=== PATIENT | female | born 1995 | race Caucasian/White ===

== ENCOUNTER 2016-12-23 09:10 | Emergency (ER) | payer OTHER ==
[~2016-12-23] VITALS: Ht 157.5 cm; Wt 57.0 kg
[~2016-12-23 09:10] MED LIST: Z.0.BCPILL PO
[2016-12-23 09:12] VITALS: BP 152/96; PULSE 73; RESP 16; TEMP 98.3; O2SAT 100
--- NOTE | 2016-12-23 09:25 | PD ---
HPI Chief Complaint: Injury Time Seen by Provider: 09:19 Travel History International Travel<30 days: No Contact w/Intl Traveler<30days: No Traveled to known affect area: No History of Present Illness HPI This is a 21-year-old female who 1 week ago was jumping off a tailgate and landed hard on her right heel, who presents today with constant heel pain, moderate severity, described as a soreness, with no associated numbness or weakness. She has been able to walk on it but she mostly asked to walk on her toes because it hurt so much. PFSH Past Medical History Hx Anticoagulant Therapy: No Diabetes: No Diminished Hearing: No Immunizations Current: Yes ?: Not LMP: 12/19/2016 : 0 Past Surgical History Other Surgery: Yes (kidney when a baby) Social History Alcohol Use: No Tobacco Use: No Substance Use: No Allergies-Medications (Allergen,Severity, Reaction): Coded Allergies: No Known Allergies (Verified , 12/23/16) Reported Meds & Prescriptions Reported Meds & Active Scripts Active Reported [ control pill] 1 Tab PO DAILY Review of Systems General / Constitutional: No: Fever, Chills Gastrointestinal: No: Nausea, Vomiting Physical Exam Narrative GENERAL: Well-appearing, no acute distress, nontoxic SKIN: Warm and dry. HEAD: Atraumatic. Normocephalic. ENT: No nasal bleeding or discharge. Moist mucous membranes Vascular: 2+ right DP pulse with normal capillary refill. MUSCULOSKELETAL: Tender to palpation over the right heel with no focal swelling or deformity NEUROLOGICAL: Awake and alert. No obvious cranial nerve deficits. Moving all extremities. PSYCHIATRIC: Appropriate mood and affect; insight and judgment normal. Data Data Last Documented VS Vital Signs Date Time Temp Pulse Resp B/P (MAP) Pulse Ox O2 Delivery O2 Flow Rate FiO2 12/23/16 09:32 16 100 Room Air 12/23/16 09:12 98.3 73 152/96 (114) Orders Orders Foot, Complete ([id number]) (12/23/16 ) [facility] Medical Decision Making Medical Screen Exam Complete: Yes Emergency Medical Condition: Yes Interpretation(s) Afebrile, no tachycardia, hypertensive Last 24 hours Impressions Foot X-Ray 12/23/16 0000 Signed Impressions: Service Date/Time: Friday, December 23, 2016 09:36 - CONCLUSION: No fracture. Emmanuel Stein MD Differential Diagnosis Calcaneal spur, calcaneal fracture, heel contusion, metatarsal fracture Narrative Course This is a 21-year-old female who presents to the emergency department having sustained an injury to her heel. Patient has a benign exam. X-rays reassuring. I suspect she has a contusion. She was given podiatry for follow- up if she is not improved in one week. Diagnosis Primary Impression: Contusion of heel Qualified Codes: S90.31XA - Contusion of right foot, initial encounter Referrals: Francisco Burton DPM Patient Instructions: General Instructions Additional Instructions: If you develop severe pain, numbness or weakness return to the emergency department. Follow-up with a stock dealer if you're not improved in one week. Med/Other Pt SpecificInfo: No Change to Meds Disposition: 01 DISCHARGE HOME Condition: Stable Julissa Valentino MD Dec 23, 2016 09:25
--- NOTE | 2016-12-23 09:25 | PD ---
HPI Chief Complaint: Injury Time Seen by Provider: 09:19 Travel History International Travel<30 days: No Contact w/Intl Traveler<30days: No Traveled to known affect area: No History of Present Illness HPI This is a 21-year-old female who 1 week ago was jumping off a tailgate and landed hard on her right heel, who presents today with constant heel pain, moderate severity, described as a soreness, with no associated numbness or weakness. She has been able to walk on it but she mostly asked to walk on her toes because it hurt so much. PFSH Past Medical History Hx Anticoagulant Therapy: No Diabetes: No Diminished Hearing: No Immunizations Current: Yes ?: Not LMP: 12/19/2016 : 0 Past Surgical History Other Surgery: Yes (kidney when a baby) Social History Alcohol Use: No Tobacco Use: No Substance Use: No Allergies-Medications (Allergen,Severity, Reaction): Coded Allergies: No Known Allergies (Verified , 12/23/16) Reported Meds & Prescriptions Reported Meds & Active Scripts Active Reported [ control pill] 1 Tab PO DAILY Review of Systems General / Constitutional: No: Fever, Chills Gastrointestinal: No: Nausea, Vomiting Physical Exam Narrative GENERAL: Well-appearing, no acute distress, nontoxic SKIN: Warm and dry. HEAD: Atraumatic. Normocephalic. ENT: No nasal bleeding or discharge. Moist mucous membranes Vascular: 2+ right DP pulse with normal capillary refill. MUSCULOSKELETAL: Tender to palpation over the right heel with no focal swelling or deformity NEUROLOGICAL: Awake and alert. No obvious cranial nerve deficits. Moving all extremities. PSYCHIATRIC: Appropriate mood and affect; insight and judgment normal. Data Data Last Documented VS Vital Signs Date Time Temp Pulse Resp B/P (MAP) Pulse Ox O2 Delivery O2 Flow Rate FiO2 12/23/16 09:32 16 100 Room Air 12/23/16 09:12 98.3 73 152/96 (114) Orders Orders Foot, Complete ([id number]) (12/23/16 ) [facility] Medical Decision Making Medical Screen Exam Complete: Yes Emergency Medical Condition: Yes Interpretation(s) Afebrile, no tachycardia, hypertensive Last 24 hours Impressions Foot X-Ray 12/23/16 0000 Signed Impressions: Service Date/Time: Friday, December 23, 2016 09:36 - CONCLUSION: No fracture. Emmanuel Stein MD Differential Diagnosis Calcaneal spur, calcaneal fracture, heel contusion, metatarsal fracture Narrative Course This is a 21-year-old female who presents to the emergency department having sustained an injury to her heel. Patient has a benign exam. X-rays reassuring. I suspect she has a contusion. She was given podiatry for follow- up if she is not improved in one week. Diagnosis Primary Impression: Contusion of heel Qualified Codes: S90.31XA - Contusion of right foot, initial encounter Referrals: Francisco Burton DPM Patient Instructions: General Instructions Additional Instructions: If you develop severe pain, numbness or weakness return to the emergency department. Follow-up with a medical technicians if you're not improved in one week. Med/Other Pt SpecificInfo: No Change to Meds Disposition: 01 DISCHARGE HOME Condition: Stable Julissa Valentino MD Dec 23, 2016 09:25
--- NOTE | 2016-12-23 09:25 | PD ---
HPI Chief Complaint: Injury Time Seen by Provider: 09:19 Travel History International Travel<30 days: No Contact w/Intl Traveler<30days: No Traveled to known affect area: No History of Present Illness HPI This is a 21-year-old female who 1 week ago was jumping off a tailgate and landed hard on her right heel, who presents today with constant heel pain, moderate severity, described as a soreness, with no associated numbness or weakness. She has been able to walk on it but she mostly asked to walk on her toes because it hurt so much. PFSH Past Medical History Hx Anticoagulant Therapy: No Diabetes: No Diminished Hearing: No Immunizations Current: Yes ?: Not LMP: 12/19/2016 : 0 Past Surgical History Other Surgery: Yes (kidney when a baby) Social History Alcohol Use: No Tobacco Use: No Substance Use: No Allergies-Medications (Allergen,Severity, Reaction): Coded Allergies: No Known Allergies (Verified , 12/23/16) Reported Meds & Prescriptions Reported Meds & Active Scripts Active Reported [ control pill] 1 Tab PO DAILY Review of Systems General / Constitutional: No: Fever, Chills Gastrointestinal: No: Nausea, Vomiting Physical Exam Narrative GENERAL: Well-appearing, no acute distress, nontoxic SKIN: Warm and dry. HEAD: Atraumatic. Normocephalic. ENT: No nasal bleeding or discharge. Moist mucous membranes Vascular: 2+ right DP pulse with normal capillary refill. MUSCULOSKELETAL: Tender to palpation over the right heel with no focal swelling or deformity NEUROLOGICAL: Awake and alert. No obvious cranial nerve deficits. Moving all extremities. PSYCHIATRIC: Appropriate mood and affect; insight and judgment normal. Data Data Last Documented VS Vital Signs Date Time Temp Pulse Resp B/P (MAP) Pulse Ox O2 Delivery O2 Flow Rate FiO2 12/23/16 09:32 16 100 Room Air 12/23/16 09:12 98.3 73 152/96 (114) Orders Orders Foot, Complete ([id number]) (12/23/16 ) [facility] Medical Decision Making Medical Screen Exam Complete: Yes Emergency Medical Condition: Yes Interpretation(s) Afebrile, no tachycardia, hypertensive Last 24 hours Impressions Foot X-Ray 12/23/16 0000 Signed Impressions: Service Date/Time: Friday, December 23, 2016 09:36 - CONCLUSION: No fracture. Emmanuel Stein MD Differential Diagnosis Calcaneal spur, calcaneal fracture, heel contusion, metatarsal fracture Narrative Course This is a 21-year-old female who presents to the emergency department having sustained an injury to her heel. Patient has a benign exam. X-rays reassuring. I suspect she has a contusion. She was given podiatry for follow- up if she is not improved in one week. Diagnosis Primary Impression: Contusion of heel Qualified Codes: S90.31XA - Contusion of right foot, initial encounter Referrals: Francisco Burton DPM Patient Instructions: General Instructions Additional Instructions: If you develop severe pain, numbness or weakness return to the emergency department. Follow-up with a digital product specialist if you're not improved in one week. Med/Other Pt SpecificInfo: No Change to Meds Disposition: 01 DISCHARGE HOME Condition: Stable Julissa Valentino MD Dec 23, 2016 09:25
[2016-12-23] MEDS ORDERED: birth control pill PO (09:37)
--- NOTE | 2016-12-23 10:05 | RADRPT ---
EXAM DATE/TIME: 12/23/2016 09:36 [facility] COMPARISON: No previous studies available for comparison. INDICATIONS : Right foot pain after jumping off of a tailgate MEDICAL HISTORY : None. SURGICAL HISTORY : None. ENCOUNTER: Initial ACUITY: 3 days PAIN SCORE: 6/10 LOCATION: Right foot FINDINGS: Three view examination of the right foot demonstrates no soft tissue swelling, dislocation, or fractu re. The tarsal bones appear intact. The interphalangeal and metatarsophalangeal joints are intact. The calcaneus is intact. Bony mineralization is normal. CONCLUSION: No fracture. Emmanuel Stein MD on December 23, 2016 at 10:03 Board Certified Radiologist. This report was verified electronically.
== END 2016-12-23 10:32 | disposition home or self-care (01) ==
LOC: PHED 09:10
DX: S90.31XA Contusion of right foot, initial encounter (principal); W17.89XA Other fall from one level to another, initial encounter; Y93.39 Activity, other involving climbing, rappelling and jumping off
CPT/HCPCS: 73630; 99283

== ENCOUNTER 2017-05-05 13:18 | Emergency (ER) | payer BC, OTHER ==
[~2017-05-05 13:18] MED LIST changes: -Z.0.BCPILL PO; +birth control pill PO
[2017-05-05 13:24] VITALS: BP 174/95; PULSE 120; RESP 20; TEMP 97; O2SAT 100
--- NOTE | 2017-05-05 14:11 | PD ---
HPI Chief Complaint: Related Problem Time Seen by Provider: 13:57 Travel History International Travel<30 days: No Contact w/Intl Traveler<30days: No Traveled to known affect area: No History of Present Illness HPI The patient is a 21-year-old female who presents to the emergency department for pelvic pain. The patient has a 4 day history of pelvic pain that radiates to the back and is associated with mild nausea. She does complain of a thin white vaginal discharge, normal for her. The patient was seen at urgent care earlier today, had a pelvic exam completed, was administered Rocephin 1 g IM, and then was noted to have a positive test. The patient was sent to the emergency department to rule out ectopic . The patient is currently on oral contraceptive pills, she denies previous . The symptoms are moderate, there are no current alleviating or exacerbating factors. She denies any dysuria, frequency, or urgency. PFSH Past Medical History Medical History: Denies Significant Hx Hx Anticoagulant Therapy: No Diabetes: No Diminished Hearing: No Immunizations Current: Yes ?: : 0 Past Surgical History Other Surgery: Yes (kidneys/ureters when a baby) Social History Alcohol Use: No Tobacco Use: No Substance Use: No Allergies-Medications (Allergen,Severity, Reaction): Coded Allergies: No Known Allergies (Verified , 12/23/16) Reported Meds & Prescriptions Reported Meds & Active Scripts Active Reported [ control pill] 1 Tab PO DAILY Review of Systems Except as stated in HPI: all other systems reviewed are Neg General / Constitutional: No: Fever Cardiovascular: No: Chest Pain or Discomfort Respiratory: No: Shortness of Breath Gastrointestinal: Positive: Nausea, No: Vomiting, Diarrhea, Abdominal Pain Genitourinary: Positive: Pelvic Pain, Discharge, No: Urgency, Frequency, Dysuria, Hematuria, Vaginal Bleeding Physical Exam Narrative GENERAL: Awake, alert, pleasant 21-year-old female who appears her stated age and is in no acute respiratory distress. SKIN: Focused skin assessment warm/dry. HEAD: Atraumatic. Normocephalic. EYES: No injection or drainage. ENT: No nasal bleeding or discharge. Mucous membranes pink and moist. NECK: Trachea midline. No JVD. CARDIOVASCULAR: Regular, tachycardic with a heart rate of 115. RESPIRATORY: No accessory muscle use. Clear to auscultation. Breath sounds equal bilaterally. GASTROINTESTINAL: Abdomen soft, moderate suprapubic tenderness. Mild guarding, no rigidity. Back: No CVA tenderness. Pelvic: The exam was performed in the presence of a female nurse. External examination reveals no rashes or lesions. Speculum examination reveals no blood in the vaginal vault. Small amount of thin white vaginal discharge which appears physiologic. Slightly posterior cervix with horn appearance but no erythema. Cervix is closed. MUSCULOSKELETAL: No obvious deformities. No clubbing. No cyanosis. No edema. NEUROLOGICAL: Awake and alert. No obvious cranial nerve deficits. Motor grossly within normal limits. Normal speech. PSYCHIATRIC: Appropriate mood and affect; insight and judgment normal. Data Data Last Documented VS Vital Signs Date Time Temp Pulse Resp B/P (MAP) Pulse Ox O2 Delivery O2 Flow Rate FiO2 05/05/17 14:40 95 15 138/81 (100) 100 Room Air 05/05/17 13:24 97.0 Orders Orders Complete Blood Count With Diff (05/05/17 13:26) Basic Metabolic Panel (Bmp) (05/05/17 13:26) Coag Profile (05/05/17 13:26) Urinalysis - C+S If Indicated (05/05/17 13:26) Ed Urine Pregnancytest Poc (05/05/17 13:26) Complete Rh (05/05/17 13:26) Type And Screen (05/05/17 13:26) Us Pelvis (Ques Pr/Ect)W Trans (05/05/17 ) Beta Hcg (Quant/Titer) (05/05/17 13:26) Morphine Inj (Morphine Inj) (05/05/17 14:15) Ondansetron Inj (Zofran Inj) (05/05/17 14:15) Sodium Chlor 0.9% 1000 Ml Inj (Ns 1000 M (05/05/17 14:15) NPO (05/05/17 14:06) Ed Discharge Order (05/05/17 17:06) Labs Laboratory Tests Test 05/05/17 14:00 05/05/17 14:10 Urine Color LIGHT-YELLOW Urine Turbidity CLEAR Urine pH 5.0 Urine Specific [place] 1.007 Urine Protein NEG mg/dL Urine Glucose (UA) NEG mg/dL Urine Ketones 40 mg/dL Urine Occult Blood NEG Urine Nitrite NEG Urine Bilirubin NEG Urine Urobilinogen LESS THAN 2.0 MG/DL Urine Leukocyte Esterase NEG Urine WBC LESS THAN 1 /hpf Urine Squamous Epithelial Cells 1 /hpf Microscopic Urinalysis Comment CULT NOT INDICATED White Blood Count 12.8 TH/MM3 Red Blood Count 5.15 MIL/MM3 Hemoglobin 15.8 GM/DL Hematocrit 44.4 % Mean Corpuscular Volume 86.2 FL Mean Corpuscular Hemoglobin 30.6 PG Mean Corpuscular Hemoglobin Concent 35.5 % Red Cell Distribution Width 12.8 % Platelet Count 309 TH/MM3 Mean Platelet Volume 8.1 FL Neutrophils (%) (Auto) 86.2 % Lymphocytes (%) (Auto) 9.9 % Monocytes (%) (Auto) 3.5 % Eosinophils (%) (Auto) 0.3 % Basophils (%) (Auto) 0.1 % Neutrophils # (Auto) 11.0 TH/MM3 Lymphocytes # (Auto) 1.3 TH/MM3 Monocytes # (Auto) 0.4 TH/MM3 Eosinophils # (Auto) 0.0 TH/MM3 Basophils # (Auto) 0.0 TH/MM3 CBC Comment DIFF FINAL Differential Comment Prothrombin Time 9.8 SEC Prothromb Time International Ratio 1.0 RATIO Activated Partial Thromboplast Time 25.4 SEC Blood Urea Nitrogen 15 MG/DL Creatinine 0.86 MG/DL Random Glucose 98 MG/DL Calcium Level 9.6 MG/DL Sodium Level 137 MEQ/L Potassium Level 3.9 MEQ/L Chloride Level 104 MEQ/L Carbon Dioxide Level 25.8 MEQ/L Anion Gap 7 MEQ/L Estimat Glomerular Filtration Rate 83 ML/MIN Human Chorionic Gonadotropin, Quant 32460 MIU/ML MDM Medical Decision Making Medical Screen Exam Complete: Yes Emergency Medical Condition: Yes Medical Record Reviewed: Yes Interpretation(s) Laboratory Tests Test 05/05/17 14:00 05/05/17 14:10 Urine Color LIGHT-YELLOW Urine Turbidity CLEAR Urine pH 5.0 Urine Specific [place] 1.007 Urine Protein NEG mg/dL Urine Glucose (UA) NEG mg/dL Urine Ketones 40 mg/dL Urine Occult Blood NEG Urine Nitrite NEG Urine Bilirubin NEG Urine Urobilinogen LESS THAN 2.0 MG/DL Urine Leukocyte Esterase NEG Urine WBC LESS THAN 1 /hpf Urine Squamous Epithelial Cells 1 /hpf Microscopic Urinalysis Comment CULT NOT INDICATED White Blood Count 12.8 TH/MM3 Red Blood Count 5.15 MIL/MM3 Hemoglobin 15.8 GM/DL Hematocrit 44.4 % Mean Corpuscular Volume 86.2 FL Mean Corpuscular Hemoglobin 30.6 PG Mean Corpuscular Hemoglobin Concent 35.5 % Red Cell Distribution Width 12.8 % Platelet Count 309 TH/MM3 Mean Platelet Volume 8.1 FL Neutrophils (%) (Auto) 86.2 % Lymphocytes (%) (Auto) 9.9 % Monocytes (%) (Auto) 3.5 % Eosinophils (%) (Auto) 0.3 % Basophils (%) (Auto) 0.1 % Neutrophils # (Auto) 11.0 TH/MM3 Lymphocytes # (Auto) 1.3 TH/MM3 Monocytes # (Auto) 0.4 TH/MM3 Eosinophils # (Auto) 0.0 TH/MM3 Basophils # (Auto) 0.0 TH/MM3 CBC Comment DIFF FINAL Differential Comment Prothrombin Time 9.8 SEC Prothromb Time International Ratio 1.0 RATIO Activated Partial Thromboplast Time 25.4 SEC Blood Urea Nitrogen 15 MG/DL Creatinine 0.86 MG/DL Random Glucose 98 MG/DL Calcium Level 9.6 MG/DL Sodium Level 137 MEQ/L Potassium Level 3.9 MEQ/L Chloride Level 104 MEQ/L Carbon Dioxide Level 25.8 MEQ/L Anion Gap 7 MEQ/L Estimat Glomerular Filtration Rate 83 ML/MIN Human Chorionic Gonadotropin, Quant 81165 MIU/ML Last Impressions Pelvis Ultrasound 05/05/17 0000 Signed Impressions: Service Date/Time: Friday, May 05, 2017 14:37 - CONCLUSION: Intrauterine less than 5 weeks. Titi Allan MD Differential Diagnosis Differential diagnosis includes ectopic , normal , ruptured ectopic , PID, cervicitis, UTI, nephrolithiasis. Narrative Course IV was established, labs are drawn and sent, and the patient was placed on cardiac telemetry monitoring and continuous pulse oximetry monitoring. The patient was administered morphine, Zofran, and IV fluids. Quantitative beta hCG was sent to lab after bedside UA test was positive. Ultrasound was ordered to rule out topic . Complete Rh was sent to lab. The patient's blood type is B-. Beta hCG was 14,582. Ultrasound reveals a gestational sac approximately 5 weeks. Pelvic exam reveals no bleeding, I discussed the patient with the on-call pens and pencils dipper, Dr. Merchant, who agrees no RhoGAM acutely indicated. The patient is advised to return for increasing pain , vaginal bleeding, or syncope. Diagnosis Primary Impression: Threatened Patient Instructions: General Instructions Additional Instructions: Please provide a patient a copy of her labs at discharge and ultrasound at discharge. Stop oral contraceptives, take vitamin daily, follow-up with pens and pencils dipper. Med/Other Pt SpecificInfo: Prescription(s) given Scripts Hydrocodone-Acetaminophen ([place]) 5 Mg-325 Mg Tab 1 TAB PO Q6H Y for PAIN, #12 TAB 0 Refills Prov: Gerardo Omer MD 05/05/17 Disposition: DISCHARGE HOME Condition: Stable Gerardo Omer MD May 05, 2017 14:11
[2017-05-05] MEDS ORDERED: ONDANSETRON HCL 4 MG/2 ML VIAL IV PUSH ONE (14:15)
[2017-05-05] MEDS ORDERED: MORPHINE SULFATE 4 MG/ML INJ IV PUSH ONE (14:15)
[2017-05-05] MEDS ORDERED: SODIUM CHLOR 0.9% 1000 ML INJ 1,000 ML IV SCH (14:15)
[2017-05-05 14:30] LABS: BILIRUBIN, URINE NEG (NEG); BLOOD, URINE NEG (NEG); GLUCOSE,URINE NEG (NEG); KETONE, URINE 40 mg/dL (NEG); NITRITE,URINE NEG (NEG); SQUAMOUS EPITHELIAL CELL URINE 1 /hpf (0-5); URINE COLOR LIGHT-YELLOW (YELLW/STRAW); URINE LEUKOCYTE ESTERASE NEG (NEG)
[2017-05-05 14:30] LABS: BASOPHIL % 0.1 % (0.0-2.0); EOSINOPHIL % 0.3 % (0.0-4.0); HEMATOCRIT 44.4 % (35.0-46.0); HEMOGLOBIN 15.8 GM/DL (11.6-15.3); LYMPH % 9.9 % (9.0-44.0); LYMPHOCYTE # 1.3 TH/MM3 (1.0-4.8); MEAN CELL VOLUME 86.2 FL (80.0-100.0); MEAN CORPUSCULAR HEMOGLOBIN 30.6 PG (27.0-34.0); MEAN CORPUSCULAR HGB CONC 35.5 % (32.0-36.0); MEAN PLATELET VOLUME 8.1 FL (7.0-11.0); MONO % 3.5 % (0.0-8.0); MONOCYTE # 0.4 TH/MM3 (0-0.9); NEUT % 86.2 % (16.0-70.0); PLATELET COUNT 309 TH/MM3 (150-450); RED BLOOD COUNT 5.15 MIL/MM3 (4.00-5.30); RED CELL DISTRIBUTION WIDTH 12.8 % (11.6-17.2); WHITE BLOOD COUNT 12.8 TH/MM3 (4.0-11.0)
[2017-05-05 14:37] LABS: PROTHROMBIN TIME - PATIENT 9.8 SEC (9.8-11.6)
[2017-05-05 14:40] VITALS: BP 138/81; PULSE 95; RESP 15; O2SAT 100
[2017-05-05 14:46] LABS: BICARBONATE 25.8 MEQ/L (21.0-32.0); CALCIUM 9.6 MG/DL (8.5-10.1); CREATININE 0.86 MG/DL (0.50-1.00)
--- NOTE | 2017-05-05 16:10 | RADRPT ---
EXAM DATE/TIME: 05/05/2017 14:37 [facility] COMPARISON: No previous studies available for comparison. GRAVID: 1 PARA: 0 AB: 0 PREV ECTOPIC: No LMP: 04/08/17 BLEEDING: No : No BC: Yes HRT? No PAIN: Yes If Yes, LOC: Midline INDICATIONS : Pelvic pain. LAB(S): Beta-hC,582 MEDICAL HISTORY : None. SURGICAL HISTORY : Kidney and ureter. ENCOUNTER: Initial ACUITY: 1 day PAIN SCORE: 6/10 LOCATION: Bilateral pelvis MEASUREMENTS: UTERUS: 7.5 x 5.1 x 3.9 cm ENDOMETRIAL STRIPE: 10 mm RIGHT OVARY: 2.7 x 2.8 x 2.4 cm LEFT OVARY: Not visualized. cm FREE FLUID: Yes cul de sac. CROWN RUMP LENGTH: Not seen. = WKS DAYS FHR: Not seen. BPM FINDINGS: A yolk sac is present within the uterus characteristic of intrauterine though the measureme nts are below 5 weeks. The gestational sac measures 1 cm in diameter. A pole is not identified. A 1.7 cm right ovarian cyst is present likely reflecting corpus luteum cyst. CONCLUSION: Intrauterine less than 5 weeks. Titi Allan MD on May 05, 2017 at 16:07 Board Certified Radiologist. This report was verified electronically.
[2017-05-05] MEDS ORDERED: NORC5TAB PO (17:09)
== END 2017-05-05 17:36 | disposition home or self-care (01) ==
LOC: NEPD 13:18
DX: O20.0 Threatened abortion (principal); Z3A.01 Less than 8 weeks gestation of pregnancy
CPT/HCPCS: 76700; 76817; 80048; 81001; 84702; 84703; 85025; 85610; 85730; 86850; 86900; 86901; 96374; 96375; 99284; J2270; J2405; J7030

== ENCOUNTER 2017-12-15 05:58 | Inpatient (IN) ==
[2017-12-15] MEDS ORDERED: Sod Chloride 0.9% Inj 1,000 ML IV.CONT PRN (06:19)
[2017-12-15] MEDS ORDERED: fentaNYL Citrate Inj 100 MCG/2 ML Ampul IV.PUSH PRN ×2 (06:19)
[2017-12-15] MEDS ORDERED: Oxytocin 30 Units/500ml Premix 30 UNITS/500 ML BAG IV.SIG ONE (06:19)
[2017-12-15] MEDS ORDERED: Sodium Chlor 0.9% Inj 500 ML IV.SIG PRN (06:19)
[2017-12-15] MEDS ORDERED: Naloxone Inj 0.4 MG/ML Vial IV.PUSH PRN (06:19)
[2017-12-15] MEDS ORDERED: Citric Acid/Sodium Citrate Liq 30 ML UDC PO SCH (06:30)
[2017-12-15] MEDS ORDERED: Sod Chloride 0.9% Inj 1,000 ML IRRIGATION SCH (07:15)
[2017-12-15] MEDS ORDERED: Sodium Chloride 0.9% 2 ML Flush PRN IV.FLUSH (07:16)
[2017-12-15 07:28] LABS: Baso % (Auto) 0.3 % (0.0-2.0); Eos # (Auto) 0.1 th/mm3 (0.0-0.4); Eos % (Auto) 0.6 % (0.0-4.0); Hematocrit 36.4 % (35.0-46.0); Hemoglobin 12.6 gm/dL (11.6-15.3); Lymph # (Auto) 2.5 th/mm3 (1.0-4.8); Lymph % (Auto) 19.4 % (9.0-44.0); Mean Corpuscular HGB Conc 34.5 % (32.0-36.0); Mean Corpuscular Volume 84.1 fL (80.0-100.0); Mean Platelet Volume 8.7 fL (7.0-11.0); Mono # (Auto) 0.9 th/mm3 (0.0-0.9); Mono % (Auto) 6.9 % (0.0-8.0); Neut # (Auto) 9.3 th/mm3 (1.8-7.7); Neut % (Auto) 72.8 % (16.0-70.0); Platelet Count 212 th/mm3 (150-450); Red Blood Count 4.33 mil/mm3 (4.00-5.30); Red Cell Distribution Width 13.8 % (11.6-17.2); White Blood Count 12.7 th/mm3 (4.0-11.0)
[2017-12-15 07:43] LABS: Amphetamine Urine With Conf Neg (Neg); Bacteria,Urine Occasional /hpf; Benzodiazepine Urine With Conf Neg (Neg); Bilirubin,Urine Negative (Negative); Clarity,Urine Cloudy (Clear); Color,Urine Yellow (Yellw/Straw); Glucose,Urine (UA) Negative (Negative); Leukocyte Esterase,Urine Moderate (Negative); Mucus,Urine Few /lpf (Occasional); Nitrite,Urine Negative (Negative); Specific Gravity,Urine 1.013 (1.002-1.035); Squamous Epithelial Cell,Urine 18 /hpf (0-5)
[2017-12-15 08:04] LABS: Albumin 2.5 g/dL (3.4-5.0); Anion Gap 11 meq/L (5-15); Aspartate Aminotransferase 23 U/L (15-37); Blood Urea Nitrogen 8 mg/dL (7-18); Carbon Dioxide 19.9 meq/L (21.0-32.0); Chloride 110 meq/L (98-107); Glomerular Filtration Rate Greater Than 89 mL/min (>89); Glucose,Random 87 mg/dL (74-106); Potassium 3.6 meq/L (3.5-5.1); Sodium 141 meq/L (136-145)
[2017-12-15 08:09] LABS: Alanine Aminotransferase 14 U/L (10-53); Alkaline Phosphatase 264 U/L (45-117); Total Protein 6.3 g/dL (6.4-8.2)
--- NOTE | 2017-12-15 10:02 | P.HP ---
History of Present Illness Service: labor and delivery Primary Care Physician: No Primary Care Physician Chief Complaint: induction of labor at 37 weeks due to pre-eclampsia History of Present Illness: pt 37 weeks cytotec induction for pre-eclampsia proteinuria pt on Procardia for PIH GBS negative - Diagnosis (1) Pre-eclampsia (2) 37 weeks gestation of Inpatient Certification: I certify that the inpatient services were ordered in accordance with Medicare regulations governing the order. This includes certification that hospital inpatient services are reasonable and necessary and in the case of services not specified as inpatient-only under 42 CFR 419.22(n), that they are appropriately provided as inpatient services in accordance to with the 2-midnight benchmark under 43 CFR 412.3(e) Estimated Total Length of Stay (Days): 3 Plans for Post Hospital Care: Home Review of Systems All other systems reviewed negative except as stated in HPI [facility] - History History Provided By: Patient, Medical Record - Medical History Medical History: Medical History (Last Updated 12/15/17 @ 10:01 by DONAVON Sheriff) Hypertension affecting (Acute) Cystic fibrosis carrier Patient denies medical problems - Surgical History Surgical History: Surgical History (Last Updated 12/15/17 @ 09:59 by DONAVON Sheriff) History of urinary tract surgery (Acute) No history of previous surgery - Family History Family History: Family History (Last Updated 12/15/17 @ 10:01 by DONAVON Sheriff) Aunt Breast cancer Cystic fibrosis - Tobacco History Second Hand Smoke Exposure: No Smoking Status: Never smoker - Alcohol History How Often Do You Have a Drink Containing Alcohol: Never - Substance Use History Substance History: No History of Abuse - Travel History Recent Travel in the [place] Within the Last 8 Weeks: No Recent Travel Out of the Country Within the Last 8 Weeks: No Medications and Allergies Active Medications: Active Medications Citric Acid/Sodium Citrate (Sodium Citrate/Citric Acid Liq) 30 ml PO [employer] [facility] Stop: 12/19/17 06:29 Fentanyl Citrate (Fentanyl Inj) 50 mcg IV.PUSH Q1H PRN PRN Reason: Pain Scale 3 - 5 Fentanyl Citrate (Fentanyl Inj) 100 mcg IV.PUSH Q1H PRN PRN Reason: PAIN SCALE 6 TO 10 Lactated Ringer's (Lr 1000 Ml Inj) 1,000 mls @ 125 mls/hr IV.CONT .Q8H [facility] Last Admin: 12/15/17 07:00 Dose: 125 mls/hr Lactated Ringer's (Lr 1000 Ml Inj) 1,000 mls @ 3,000 mls/hr IV.SIG UNSCH PRN PRN Reason: compromise or epidural Sodium Chloride (Ns Inj) 500 mls @ 1,000 mls/hr IV.SIG UNSCH PRN PRN Reason: SEE LABEL COMMENTS Sodium Chloride (Ns Inj) 1,000 mls @ 100 mls/hr IV.CONT .Q10H PRN PRN Reason: SEE LABEL COMMENTS Sodium Chloride (Ns Inj) 1,000 mls @ 0 mls/hr IRRIGATION .Q0M [facility] Stop: 12/16/17 07:14 Lidocaine HCl (Xylocaine 1% Inj) 0.1 ml I-DERMAL PRN PRN PRN Reason: For IV start Stop: 12/18/17 06:18 Lidocaine HCl (Xylocaine 1% Inj) 10 ml INFILTRATN PRN PRN PRN Reason: For episiotomy repair Stop: 12/17/17 06:18 Mineral Oil (Muri-Lube Oil) 10 ml TOPICAL PRN PRN PRN Reason: PRN perineal massage Naloxone HCl (Narcan Inj) 0.1 mg IV.PUSH Q2M PRN PRN Reason: for opiate reversal Ondansetron HCl (Zofran Inj) 4 mg IV.PUSH Q6H PRN PRN Reason: NAUSEA OR VOMITING Sodium Chloride (Ns Flush) 2 ml IV.FLUSH BID YUMIKO Sodium Chloride (Ns Flush) 2 ml IV.FLUSH PRN PRN PRN Reason: FLUSH AFTER USING IV ACCESS Allergies Allergy/AdvReac Type Severity Reaction Status Date / Time No Known Allergies Allergy Verified 12/15/17 06:09 Home Medications Medication Instructions Recorded Confirmed Type nifedipine 60 mg PO DAILY 11/02/17 12/15/17 History PNV #[id number] 1 tab PO DAILY 12/15/17 12/15/17 History docusate sodium [Colace] 1 tab PO DAILY 12/15/17 12/15/17 History ferrous sulfate [Iron (ferrous 1 tab PO DAILY 12/15/17 12/15/17 History sulfate)] Exam Vital signs: Vital Signs 12/15/17 06:24 12/15/17 06:30 12/15/17 07:29 Temperature 98.9 F 98.6 F Pulse Rate 113 H Respiratory Rate 18 16 Blood Pressure 140/92 H 12/15/17 07:30 Temperature Pulse Rate 95 H Respiratory Rate Blood Pressure 130/82 Intake & Output 12/14/17 12/15/17 12/15/17 18:59 06:59 18:59 Weight 73.028 kg - Constitutional no acute distress - Routine HEENT Exam Head: Present: normocephalic ENT: Present: mucous membranes moist - Routine Neck Exam Present: supple - Routine Respiratory Exam Present: CTA bilaterally - Routine Cardiovascular Exam Present: RRR, S1, S2 - Routine Abdominal Exam Present: soft, normoactive bowel sounds Comments: gravid - Routine Skin Exam Present: intact - Routine Neurological Exam Present: alert, oriented X3 Results - Labs CBC & Chem 7: 12/15/17 06:35 12/15/17 06:27 Labs: Laboratory Results - last 24 hr 12/15/17 12/15/17 12/15/17 06:27 06:35 06:35 WBC RBC Hgb Hct MCV MCH MCHC RDW Plt Count MPV Neut % (Auto) Lymph % (Auto) [place] % (Auto) Eos % (Auto) Baso % (Auto) Neut # (Auto) Lymph # (Auto) [place] # (Auto) Eos # (Auto) Baso # (Auto) WBC Differential Differential Comment Sodium 141 Potassium 3.6 Chloride 110 H Carbon Dioxide 19.9 L Anion Gap 11 BUN 8 Creatinine 0.71 Estimated GFR Greater than 89 Random Glucose 87 Calcium 8.0 L Total Bilirubin 0.4 AST 23 ALT 14 Alkaline Phosphatase 264 H Total Protein 6.3 L Albumin 2.5 L Urine Color Yellow Urine Clarity Cloudy H Urine pH 6.0 Ur Specific [place] 1.013 Urine Protein Negative Urine Glucose (UA) Negative Urine Ketones Negative Urine Occult Blood Negative Urine Nitrate Negative Urine Bilirubin Negative Urine Urobilinogen Less than 2 Ur Leukocyte Esterase Moderate H Urine RBC 2 Urine WBC 13 H Ur Squamous Epith Cells 18 Urine Bacteria Occasional H Urine Mucus Few H Micro UA Comment Culture indicated Ur Microscopic Review Not Reportable Urine Culture Comments Culture indicated Urine Opiates Screen Neg Ur Barbiturates Screen Neg Ur Amphetamine Screen Neg U Benzodiazepines Scrn Neg Urine Cocaine Screen Neg U Cannabinoids Screen Neg Blood Type 12/15/17 12/15/17 06:35 06:35 WBC 12.7 H RBC 4.33 Hgb 12.6 Hct 36.4 MCV 84.1 MCH 29.0 MCHC 34.5 RDW 13.8 Plt Count 212 MPV 8.7 Neut % (Auto) 72.8 H Lymph % (Auto) 19.4 [place] % (Auto) 6.9 Eos % (Auto) 0.6 Baso % (Auto) 0.3 Neut # (Auto) 9.3 H Lymph # (Auto) 2.5 [place] # (Auto) 0.9 Eos # (Auto) 0.1 Baso # (Auto) 0.0 WBC Differential . Differential Comment Auto diff final Sodium Potassium Chloride Carbon Dioxide Anion Gap BUN Creatinine Estimated GFR Random Glucose Calcium Total Bilirubin AST ALT Alkaline Phosphatase Total Protein Albumin Urine Color Urine Clarity Urine pH Ur Specific [place] Urine Protein Urine Glucose (UA) Urine Ketones Urine Occult Blood Urine Nitrate Urine Bilirubin Urine Urobilinogen Ur Leukocyte Esterase Urine RBC Urine WBC Ur Squamous Epith Cells Urine Bacteria Urine Mucus Micro UA Comment Ur Microscopic Review Urine Culture Comments Urine Opiates Screen Ur Barbiturates Screen Ur Amphetamine Screen U Benzodiazepines Scrn Urine Cocaine Screen U Cannabinoids Screen Blood Type B Negative Caprini VTE Risk Assessment Caprini VTE Risk Assessment: No/Low Risk (score <= 1) Caprini Risk Assessment Model: Point Value = 1 Point Value = 2 Point Value = 3 Point Value = 5 Age 41-60 Minor surgery BMI > 25 kg/m2 Swollen legs Varicose veins or History of unexplained or recurrent spontaneous Oral contraceptives or hormone replacement Sepsis (< 1 month) Serious lung disease, including pneumonia (< 1 month) Abnormal pulmonary function Acute myocardial infarction Congestive heart failure (< 1 month) History of inflammatory bowel disease Medical patient at bed rest Age 61-74 Arthroscopic surgery Major open surgery (> 45 min) Laparoscopic surgery (> 45 min) Malignancy Confined to bed (> 72 hours) Immobilizing plaster cast Central venous access Age >= 75 History of VTE Family history of VTE Factor V Leiden Prothrombin [id number] Lupus anticoagulant Anticardiolipin antibodies Elevated serum homocysteine Heparin-induced thrombocytopenia Other congenital or acquired thrombophilia Stroke (< 1 month) Elective arthroplasty Hip, pelvis, or leg fracture Acute spinal cord injury (< 1 month) Prophylaxis Regimen: Total Risk Factor Score Risk Level Prophylaxis Regimen 0-1 Low Early ambulation 2 Moderate Order ONE of the following: *Sequential Compression Device (SCD) *Heparin 5000 units SQ BID 3-4 Higher Order ONE of the following medications: *Heparin 5000 units SQ TID *Enoxaparin/Lovenox 40 mg SQ daily (WT < 150 kg, CrCl > 30 mL/min) *Enoxaparin/Lovenox 30 mg SQ daily (WT < 150 kg, CrCl > 10-29 mL/min) *Enoxaparin/Lovenox 30 mg SQ BID (WT < 150 kg, CrCl > 30 mL/min) AND/OR *Sequential Compression Device (SCD) 5 or more Highest Order ONE of the following medications: *Heparin 5000 units SQ TID (Preferred with Epidurals) *Enoxaparin/Lovenox 40 mg SQ daily (WT < 150 kg, CrCl > 30 mL/min) *Enoxaparin/Lovenox 30 mg SQ daily (WT < 150 kg, CrCl > 10-29 mL/min) *Enoxaparin/Lovenox 30 mg SQ BID (WT < 150 kg, CrCl > 30 mL/min) AND *Sequential Compression Device (SCD) Assessment and Plan - Assessment (1) Pre-eclampsia Code(s): O14.90 - Unspecified pre-eclampsia, unspecified trimester Status: Acute Plan: induction of labor (2) 37 weeks gestation of Code(s): Z3A.37 - 37 weeks gestation of Status: Acute Plan: induction of labor - Plan pt 37 weeks pre-eclampsia admitted this am for cytotec induction of labor pre-eclamptic labs ordered pt denies JEFFERSON or visual changes pt feeling occasional mild contraction Code Status: full code
[2017-12-15] MEDS: Sodium Chloride 0.9% 2 ML Flush BID IV.FLUSH SCH (12:04)
[2017-12-15] MEDS ORDERED: Zolpidem Tartrate 5 MG Tablet PO PRN (21:00)
[2017-12-16] MEDS: Sodium Chloride 0.9% 2 ML Flush BID IV.FLUSH SCH ×3 (01:53→21:00)
[2017-12-16] MEDS ORDERED: Oxytocin 30 Units/500ml Premix 30 UNITS/500 ML BAG IV.CONT PRN ×2 (03:00→09:03)
[2017-12-16] MEDS ORDERED: fentaNYL 2MCG-Bupiv 0.125% Epi 150 ML EPIDURAL ONE (03:48)
[2017-12-16] MEDS ORDERED: Lidocaaine 1.5%/Epinephrine 1:200,000 PF Inj 5 ML Amp ONE (03:56)
[2017-12-16] MEDS ORDERED: Lidocaine PF 1% Inj 5 ML Vial ONE (03:56)
[2017-12-16] MEDS ORDERED: Lidocaine 1% Inj 50 ML Vial ONE (08:18)
[2017-12-16] MEDS ORDERED: Acetaminophen 325 MG Tablet PO PRN (09:03)
[2017-12-16] MEDS ORDERED: Naloxone Inj 0.4 MG/ML Vial IV.PUSH PRN (09:03)
[2017-12-16] MEDS ORDERED: Zolpidem Tartrate 5 MG Tablet PO PRN (09:03)
[2017-12-16] MEDS ORDERED: Bisacodyl 10 MG Supp RECTAL PRN (09:03)
[2017-12-16] MEDS ORDERED: Benzocaine 20% Top Spray 60 ML Can TOPICAL PRN (09:03)
--- NOTE | 2017-12-16 09:08 | P.OBDELI ---
Weeks Gestation: 37 Patient Started Active Labor: Yes Active Labor Start Date: 12/16/17 Medical Induction of Labor: Yes Medical Induction Start Date: 12/15/17 Artificial Rupture of Membrane: No Anesthesia: Epidural Episiotomy: none Vaginal Delivery: Normal Presentation: Occiput anterior Nuchal Cord: None Delayed Cord Clamping (45 sec): Yes Shoulder Dystocia: Fiorella maneuver done Placenta: Spontaneous delivery, Intact, 3 vessel cord Laceration: Perineal, 1 deg Estimated blood loss (mL): 250 Infant: Male (nice delivery of Alfie. Small subclitoral tear repaired with 5-0 vicryl.)
[2017-12-16] MEDS: Witch Hazel 50%/Glyderin 12.5% 40 Pad Jar RECTAL PRN (09:44)
[2017-12-16] MEDS ORDERED: Diphtheria/Tetanus/Pertussis Vaccine Inj 0.5 ML Syringe IM ONE (16:00)
[2017-12-16] MEDS ORDERED: Measles/Mumps/Rubella Vaccine Inj 0.5 ML Vial SQ ONE (16:00)
[2017-12-16 21:39] VITALS: RESP 18
[2017-12-17] MEDS: Senna/Docusate Sodium 8.6/50 MG Tablet PO SCH ×3 (01:50→22:52)
[2017-12-17] MEDS: Sodium Chloride 0.9% 2 ML Flush BID IV.FLUSH SCH ×2 (08:31→22:53)
--- NOTE | 2017-12-17 09:26 | P.PNOB ---
Subjective Post day: 1 Objective Vital Signs/I&O: Vital Signs 12/16/17 09:45 12/16/17 10:00 12/16/17 10:15 Temperature Pulse Rate 82 78 77 Respiratory Rate 18 Blood Pressure 127/83 125/84 125/83 12/16/17 11:15 12/16/17 20:00 12/17/17 08:12 Temperature 98.0 F 98.5 F 98.1 F Pulse Rate 80 90 87 Respiratory Rate 20 18 18 Blood Pressure 128/79 140/91 H 123/95 H Result Diagrams: 12/15/17 06:35 12/15/17 06:27 Objective Remarks: GENERAL: Well-nourished, well-developed patient. CARDIOVASCULAR: Regular rate and rhythm without murmurs, gallops, or rubs. RESPIRATORY: Breath sounds equal bilaterally. No accessory muscle use. ABDOMEN/GI: Abdomen soft, non-tender. Fundus: Firm, non-tender at umbilicus. GENITOURINARY: Light to moderate bleeding. EXTREMITIES: No cyanosis or edema, non-tender, without signs of DVT. Medications and IVs: Active Medications Acetaminophen (Tylenol) 650 mg PO Q4H PRN PRN Reason: PAIN SCALE 1 TO 2 Al Hydroxide/Mg Hydroxide (Milk Of Magnesia Liq) 30 ml PO Q12H PRN PRN Reason: Mild Constipation Benzocaine (Americaine 20% [place]) 1 spray TOPICAL Q4H PRN PRN Reason: For Perineum Discomfort Last Admin: 12/16/17 09:45 Dose: 1 spray Bisacodyl (Dulcolax Supp) 10 mg RECTAL DAILY PRN PRN Reason: SEVERE CONSITIPATION Oxytocin (Pitocin 30 Units/Ns 500 Ml Premix) 30 units in 500 mls @ 100 mls/hr IV.CONT UNSCH PRN PRN Reason: Heavy bleeding Last Admin: 12/16/17 09:26 Dose: 100 mls/hr Ibuprofen (Motrin) 800 mg PO Q8H PRN PRN Reason: For Cramping Last Admin: 12/17/17 01:49 Dose: 800 mg Lactulose (Lactulose Liq) 30 ml PO DAILY PRN PRN Reason: SEVERE CONSITIPATION Naloxone HCl (Narcan Inj) 0.1 mg IV.PUSH Q2M PRN PRN Reason: for opiate reversal Ondansetron HCl (Zofran Odt) 4 mg PO Q6H PRN PRN Reason: NAUSEA OR VOMITING Vit/Calcium/Iron/Folic Ac (Stuartnatal Plus 3) 1 tab PO DAILY [facility] Senna/Docusate Sodium (Sarah-Colace) 1 tab PO BID [facility] Last Admin: 12/17/17 08:31 Dose: Not Given Sennosides (Senokot) 17.2 mg PO Q12H PRN PRN Reason: Moderate Constipation Sodium Chloride (Ns Flush) 2 ml IV.FLUSH BID [facility] Last Admin: 12/17/17 08:31 Dose: Not Given Sodium Chloride (Ns Flush) 2 ml IV.FLUSH PRN PRN PRN Reason: FLUSH AFTER USING IV ACCESS Witch Leona/Glycerin (Tucks Pads) 1 applicatio RECTAL QID PRN PRN Reason: HEMORRHOIDS Last Admin: 12/16/17 09:44 Dose: 1 applicatio Zolpidem Tartrate (Ambien) 5 mg PO HS PRN PRN Reason: SLEEP Assessment and Plan - Diagnosis (1) Pre-eclampsia Code(s): O14.90 - Unspecified pre-eclampsia, unspecified trimester Status: Resolved (2) 37 weeks gestation of Code(s): Z3A.37 - 37 weeks gestation of Status: Resolved (3) (normal spontaneous vaginal delivery) Code(s): O80 - Encounter for full-term uncomplicated delivery Status: Acute Plan: routine care - Plan pt doing well pre-eclamptic labs normal will monitor bp's pain well managed with oral pain medication and bonding with routine care Discharge Planning: dc home tomorrow
[2017-12-17] MEDS: Prenatal Vit/Ca/Iron/Folic Acid Tablet PO SCH (13:36)
[2017-12-17 19:53] VITALS: PULSE 79
[2017-12-18] MEDS: Witch Hazel 50%/Glyderin 12.5% 40 Pad Jar RECTAL PRN (07:32)
--- NOTE | 2017-12-18 08:01 | P.PNOB ---
Subjective Post day: 2 Objective Vital Signs/I&O: Vital Signs 12/17/17 08:12 12/17/17 19:52 Temperature 98.1 F 98.2 F Pulse Rate 87 79 Respiratory Rate 18 18 Blood Pressure 123/95 H 122/83 Result Diagrams: 12/15/17 06:35 12/15/17 06:27 Objective Remarks: GENERAL: Well-nourished, well-developed patient. CARDIOVASCULAR: Regular rate and rhythm without murmurs, gallops, or rubs. RESPIRATORY: Breath sounds equal bilaterally. No accessory muscle use. ABDOMEN/GI: Abdomen soft, non-tender. Fundus: Firm, non-tender at umbilicus. GENITOURINARY: Light to moderate bleeding. EXTREMITIES: No cyanosis or edema, non-tender, without signs of DVT. Medications and IVs: Active Medications Acetaminophen (Tylenol) 650 mg PO Q4H PRN PRN Reason: PAIN SCALE 1 TO 2 Al Hydroxide/Mg Hydroxide (Milk Of Magnesia Liq) 30 ml PO Q12H PRN PRN Reason: Mild Constipation Benzocaine (Americaine 20% Top [place]) 1 spray TOPICAL Q4H PRN PRN Reason: For Perineum Discomfort Last Admin: 12/16/17 09:45 Dose: 1 spray Bisacodyl (Dulcolax Supp) 10 mg RECTAL DAILY PRN PRN Reason: SEVERE CONSITIPATION Oxytocin (Pitocin 30 Units/Ns 500 Ml Premix) 30 units in 500 mls @ 100 mls/hr IV.CONT UNSCH PRN PRN Reason: Heavy bleeding Last Admin: 12/16/17 09:26 Dose: 100 mls/hr Ibuprofen (Motrin) 800 mg PO Q8H PRN PRN Reason: For Cramping Last Admin: 12/18/17 07:33 Dose: 800 mg Lactulose (Lactulose Liq) 30 ml PO DAILY PRN PRN Reason: SEVERE CONSITIPATION Naloxone HCl (Narcan Inj) 0.1 mg IV.PUSH Q2M PRN PRN Reason: for opiate reversal Ondansetron HCl (Zofran Odt) 4 mg PO Q6H PRN PRN Reason: NAUSEA OR VOMITING Vit/Calcium/Iron/Folic Ac (Stuartnatal Plus 3) 1 tab PO DAILY YUMIKO Last Admin: 12/17/17 13:36 Dose: Not Given Senna/Docusate Sodium (Sarah-Colace) 1 tab PO BID [facility] Last Admin: 12/17/17 22:52 Dose: 1 tab Sennosides (Senokot) 17.2 mg PO Q12H PRN PRN Reason: Moderate Constipation Sodium Chloride (Ns Flush) 2 ml IV.FLUSH BID [facility] Last Admin: 12/17/17 22:53 Dose: Not Given Sodium Chloride (Ns Flush) 2 ml IV.FLUSH PRN PRN PRN Reason: FLUSH AFTER USING IV ACCESS Witch Leona/Glycerin (Tucks Pads) 1 applicatio RECTAL QID PRN PRN Reason: HEMORRHOIDS Last Admin: 12/18/17 07:32 Dose: 1 applicatio Zolpidem Tartrate (Ambien) 5 mg PO HS PRN PRN Reason: SLEEP Assessment and Plan - Diagnosis (1) 37 weeks gestation of Code(s): Z3A.37 - 37 weeks gestation of Status: Resolved Plan: routine (2) Pre-eclampsia Code(s): O14.90 - Unspecified pre-eclampsia, unspecified trimester Status: Resolved (3) (normal spontaneous vaginal delivery) Code(s): O80 - Encounter for full-term uncomplicated delivery Status: Acute Plan: routine care - Plan POD #2 pt doing well bp stable, f/u in office next week for bp check pain well managed with oral pain medication and bonding with routine care Discharge Planning: dc home today
[2017-12-18 08:18] VITALS: BP 124/91; TEMP 98.1
[2017-12-18] MEDS: Senna/Docusate Sodium 8.6/50 MG Tablet PO SCH (09:22)
[2017-12-18] MEDS: Prenatal Vit/Ca/Iron/Folic Acid Tablet PO SCH (09:22)
--- NOTE | 2017-12-18 11:57 | P.DS ---
Date of admission: 12/15/17 05:58 Primary care physician: Key Primary Care Physician Attending physician on discharge: Ramesh Nicole Anticipated date of discharge: 12/18/17 Brief History from admission: pt 37 weeks cytotec induction for pre-eclampsia proteinuria pt on Procardia for PIH GBS negative DS: Diagnosis - Discharge Diagnosis (1) 37 weeks gestation of Status: Resolved (2) Pre-eclampsia Status: Resolved (3) (normal spontaneous vaginal delivery) Status: Acute DS: Medications - Discharge Medications Prescriptions: ibuprofen 800 mg PO Q8H PRN #30 tab PRN Reason: For Cramping DS: Summary Hospital Course: induction of labor routine care - Time Spent with Patient Total time spent providing and/or coordinating discharge services: Less than 30 minutes Exam Vital signs: Vital Signs 12/17/17 19:52 12/18/17 08:00 Temperature 98.2 F 98.1 F Pulse Rate 79 79 Respiratory Rate 18 18 Blood Pressure 122/83 124/91 H Narrative: see post exam Results Procedures completed during hospitalization: Labs on day of discharge: Labs from last 24 hours 12/15/17 06:35 Ur Buprenorphine Negative Ur Heroin Screen Negative Urine Oxycodone Negative Ur Methadone Negative U Hydromorphone Confirm Negative Urine Fentanyl Negative Urine Gabapentin Negative Ur Phencyclidine (PCP) Negative Urine MDPV Negative Ur MDMA & Metabolites Negative Ur Synth THC (K2) Negative Discharge Plan - Discharge Disposition Patient Disposition: 01 Discharge Home - Discharge Condition Condition: Good - Discharge Order Discharge Orders: Discharge Order (Routine); Ordered 12/18/17 Ordered By: Radha Rod CHIEF ENGINEER[employer] HELPER Clear for Discharge (Routine); Ordered 12/18/17 Ordered By: Radha Rod - Discharge Details Anticipated Discharge Date: 12/18/17 - Physicians Team Primary Care Provider: Primary Care Key Goff Attending Provider: Ramesh Nicole - Rxs /Orders / Referrals /Forms Prescriptions: New ibuprofen 800 mg Tablet 800 mg PO Q8H PRN (Reason: For Cramping) Qty: 30 RF: 1 Continue PNV #[id number] acid-omega3 30 mg iron-10 mg iron-1 mg Capsule 1 tab PO DAILY Discontinued docusate sodium [Colace] 100 mg Capsule 1 tab PO DAILY ferrous sulfate [Iron (ferrous sulfate)] 325 mg (65 mg iron) Tablet 1 tab PO DAILY nifedipine 30 mg Tablet Extended Release 60 mg PO DAILY Referrals: Primary Care Key Goff [Primary Care Provider] - See Instructions Ramesh Nicole MD [Physician] - See Instructions (call to be seen next week , bp check) - Post Discharge Care Plan Care Plan Goals: Congratulations on your new baby! We want your recovery to be cornejo and trouble free. Please Report the Following Symptoms to Your Doctor: -Temperature above 100.5 degrees -Unusual pain or calf pain -Increased vaginal bleeding -Painful or difficulty urinating -Feelings of extreme sadness or anxiety Goals to Promote Your Health * To prevent worsening of your condition and complications * To maintain your health at the optimal level Directions to Meet Your Goals Take your medications as prescribed Follow your dietary instruction Follow activity as directed Ensure plenty of rest for recovery Drink fluids for hydration Keep your appointments as scheduled Take your immunizations and boosters as scheduled If your symptoms worsen call your OB Physician, or go to an Urgent Care Center or Emergency Room Smoking is Dangerous to your health. Avoid second hand smoke Call the 24-hour crisis hotline for domestic abuse at
== END 2017-12-18 13:50 | disposition home or self-care (01) ==
LOC: H2E 05:58 → H1EA 12-16 10:43
PROVIDERS: ADMIT Obstetrics & Gynecology; ATTEND Obstetrics & Gynecology